=== PATIENT | male | born 2005 | race Two or more races ===

== ENCOUNTER 2024-12-24 03:42 | Emergency (ER) | payer SELFPAY ==
[2024-12-24 03:44] VITALS: BMI 22.2
[2024-12-24 04:04] VITALS: BP 147/81; PULSE 66; RESP 20; TEMP 36.9; O2SAT 96
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
[2024-12-24] MEDS: BACITRACIN OINT 1 GM PACKET TOP (04:33)
== END 2024-12-24 04:39 ==
LOC: SERX 04:54
PROVIDERS: Emergency Provider Emergency Medicine
DX: Z02.89 Encounter for other administrative examinations (principal); T22.112A Burn of first degree of left forearm, initial encounter; T31.0 Burns involving less than 10% of body surface; V47.5XXA Car driver injured in collision with fixed or stationary object in traffic accident, initial encounter
CPT/HCPCS: 99282; A9270